=== PATIENT | female | born 1990 | race Caucasian/White ===

== ENCOUNTER 2017-09-26 10:21 | Emergency (ER) | payer OTHER ==
[2017-09-26 10:39] VITALS: RESP 18
[2017-09-26] MEDS ORDERED: KETOROLAC 60 MG/2 ML VIAL IM STA (11:25)
--- NOTE | 2017-09-26 11:29 | ED ---
Back Pain HPI - General Chief Complaint: Back Pain/Injury Stated Complaint: Back injury Time Seen by Provider: 09/26/17 11:04 Source: patient, RN notes reviewed Limitations: no limitations - History of Present Illness Initial Comments: Physical 27-year-old female with a benign past medical history states he is taking up her 3-year-old daughter yesterday developed some low back pain that sharp in nature 9/10 severity nonradiating. She states a little worse on the left than the right she states she took Tylenol without relief and 800 mg Motrin this morning without relief. Does not affect her urination or bowel movements. She has no prior history of low back problems. She states her last menstrual very was last month and does not believe she is . MD Complaint: back pain, back injury - Related Data Previous Rx's Medication Instructions Recorded Cyclobenzaprine [Flexeril] 10 mg PO TID #14 tab 09/26/17 Ketorolac [Toradol] 10 mg PO Q6HR #20 tab 09/26/17 predniSONE 20 mg PO BID #10 tab 09/26/17 Allergies Allergy/AdvReac Type Severity Reaction Status Date / Time No Known Allergies Allergy Verified 09/26/17 12:24 Review of Systems ROS Statement: Those systems with pertinent positive or pertinent negative responses have been documented in the HPI. ROS Other: All systems not noted in ROS Statement are negative. Past Medical History Past Medical History: No Reported History History of Any Multi-Drug Resistant Organisms: None Reported Past Surgical History: Section Past Psychological History: No Psychological Hx Reported Smoking Status: Never smoker Past Alcohol Use History: None Reported Past Drug Use History: Unable to Obtain General Exam - General Exam Comments Initial Comments: This is a well-developed well-nourished awake alert oriented 5 female Limitations: no limitations General appearance: alert, anxious Eye exam: Present: normal appearance, PERRL, EOMI. Absent: scleral icterus, conjunctival injection, periorbital swelling ENT exam: Present: normal exam, mucous membranes moist Neck exam: Present: normal inspection, full ROM. Absent: tenderness, meningismus, lymphadenopathy Respiratory exam: Present: normal lung sounds bilaterally. Absent: respiratory distress, wheezes, rales, rhonchi, stridor Cardiovascular Exam: Present: regular rate, normal rhythm, normal heart sounds. Absent: systolic murmur, diastolic murmur, rubs, gallop, clicks GI/Abdominal exam: Present: soft, normal bowel sounds. Absent: distended, tenderness, guarding, rebound, rigid Extremities exam: Present: normal inspection, full ROM, normal capillary refill. Absent: tenderness, pedal edema, joint swelling, calf tenderness Back exam: Present: normal inspection, tenderness, paraspinal tenderness. Absent: CVA tenderness (R), CVA tenderness (L), vertebral tenderness, rash noted (Tennis palpation over the L4 5 paraspinous muscles no definite SI joint or gluteal tenderness.) Neurological exam: Present: alert, oriented X3, CN II-XII intact Psychiatric exam: Present: normal affect, normal mood Skin exam: Present: warm, dry, intact, normal color. Absent: rash Course Vital Signs 09/26/17 10:36 Temperature 98.4 F Pulse Rate 61 Respiratory 18 Rate Blood Pressure 105/66 O2 Sat by Pulse 98 Oximetry Medical Decision Making - Medical Decision Making I did discuss findings with the patient she will be discharged she'll be tried on a course of muscle relaxants and anti-inflammatories as well as some pain medication. The presentation is consistent with a Q lumbar strain - Radiology Data Radiology results: image reviewed (I did review the imaging and reports pending she no evidence of acute) Disposition Clinical Impression: Strain of lumbar region Disposition: HOME SELF-CARE Condition: Good Instructions: Acute Low Back Pain (ED) Prescriptions: Cyclobenzaprine [Flexeril] 10 mg PO TID #14 tab Ketorolac [Toradol] 10 mg PO Q6HR #20 tab predniSONE 20 mg PO BID #10 tab Is patient prescribed a controlled substance at d/c from ED?: No Referrals: None,Stated [Primary Care Provider] - 1-2 days
[2017-09-26] MEDS ORDERED: methylPREDNISolone SOD SUCCI 125 MG/2 ML VIAL IM ONE (12:47)
--- NOTE | 2017-09-26 13:11 | XR ---
EXAMINATION TYPE: XR lumbosacral spine min 4V DATE OF EXAM: 09/26/2017 CLINICAL HISTORY: Lifting injury with pain. TECHNIQUE: Frontal, lateral, and oblique images of the lumbar spine are obtained. COMPARISON: None FINDINGS: There are 5 lumbar type vertebral bodies identified. The lumbar spine shows straightened alignment without evidence of acute fracture or dislocation. Vertebral body heights and disk space he ights are within normal limits. The oblique images appear within normal limits. The overlying soft tissue appears unremarkable. IMPRESSION: No acute fracture or dislocation is seen in the lumbar spine.
[2017-09-26 13:31] VITALS: BP 142/68; PULSE 52; TEMP 98.2
== END 2017-09-26 13:32 | disposition home or self-care (01) ==
LOC: EC 10:21
DX: S39.012A Strain of muscle, fascia and tendon of lower back, initial encounter (principal); X58.XXXA Exposure to other specified factors, initial encounter
CPT/HCPCS: 72110; 96372; 99283

== ENCOUNTER → 2018-07-04 | Outpatient (CLI) | payer OTHER | END | disposition home or self-care (01) | LOC: LABWHC1 11:43 | PROVIDERS: ATTEND Obstetrics & Gynecology | DX: N91.2 Amenorrhea, unspecified (principal) | CPT/HCPCS: 36415; 84702 ==

== ENCOUNTER 2023-08-08 13:59 | Emergency (ER) | payer OTHER ==
[2023-08-08 14:10] VITALS: TEMP 97.9
--- NOTE | 2023-08-08 14:43 | ED ---
Nausea/Vomiting/Diarrhea HPI - General Chief complaint: Nausea/Vomiting/Diarrhea Stated complaint: Vomiting-10 weeks preg Time Seen by Provider: 08/08/23 14:09 Source: patient, RN notes reviewed Mode of arrival: wheelchair Limitations: no limitations - History of Present Illness Initial comments: 33-year-old female presents emergency department chief complaint of nausea vomiting . Patient is G4, approximate 10 weeks she has had a prior ultrasound showing intrauterine . Patient denies any vaginal bleeding or vaginal discharge. Patient states that that she has been placed on Zofran which she ran out. Patient states that she tried some Unisom and B6 today states that she cannot hold it down. Patient denies any fevers or chills no localized abdominal pain. - Related Data Previous Rx's Medication Instructions Recorded Cyclobenzaprine [Flexeril] 10 mg PO TID #14 tab 09/26/17 Ketorolac [Toradol] 10 mg PO Q6HR #20 tab 09/26/17 predniSONE [Deltasone] 20 mg PO BID #10 tab 18 Ondansetron Odt [Zofran Odt] 4 mg PO Q8HR PRN #14 tab 08/08/23 Allergies Allergy/AdvReac Type Severity Reaction Status Date / Time No Known Allergies Allergy Verified 08/08/23 14:10 Review of Systems ROS Statement: Those systems with pertinent positive or pertinent negative responses have been documented in the HPI. ROS Other: All systems not noted in ROS Statement are negative. Past Medical History Past Medical History: No Reported History Additional Past Medical History / Comment(s): hyperemesis gravidarum with last History of Any Multi-Drug Resistant Organisms: None Reported Past Surgical History: Section Past Psychological History: No Psychological Hx Reported Past Alcohol Use History: None Reported Past Drug Use History: Unable to Obtain General Exam Limitations: no limitations General appearance: alert, in no apparent distress Head exam: Present: atraumatic, normocephalic, normal inspection Eye exam: Present: normal appearance, PERRL, EOMI. Absent: scleral icterus, conjunctival injection, periorbital swelling ENT exam: Present: normal exam, normal oropharynx, mucous membranes moist Neck exam: Present: normal inspection, full ROM. Absent: tenderness, meningismus, lymphadenopathy Respiratory exam: Present: normal lung sounds bilaterally. Absent: respiratory distress, wheezes, rales, rhonchi, stridor Cardiovascular Exam: Present: regular rate, normal rhythm, normal heart sounds. Absent: systolic murmur, diastolic murmur, rubs, gallop, clicks GI/Abdominal exam: Present: soft, normal bowel sounds. Absent: distended, tenderness, guarding, rebound, rigid Course Vital Signs 08/08/23 08/08/23 14:06 16:26 Temperature 97.9 F Pulse Rate 78 80 Respiratory 16 18 Rate Blood Pressure 137/87 130/86 O2 Sat by Pulse 98 99 Oximetry Medical Decision Making - Medical Decision Making Was pt. sent in by a medical professional or institution (, PA, [employer], urgent care, hospital, or detention...) When possible be specific @ -No Did you speak to anyone other than the patient for history (EMS, parent, family, police, friend...)? What history was obtained from this source @ -No Did you review nursing and triage notes (agree or disagree)? Why? @ -I reviewed and agree with nursing and triage notes Were old charts reviewed (outside hosp., previous admission, EMS record, old EK G, old radiological studies, urgent care reports/EKG's, detention records)? Report findings @ -No old charts were reviewed Differential Diagnosis (chest pain, altered mental status, abdominal pain women, abdominal pain men, vaginal bleeding, weakness, fever, dyspnea, syncope, headache, dizziness, GI bleed, back pain, seizure, CVA, palpatations, mental health, musculoskeletal)? @ -Differential Abdominal Pain Women: Appendicitis, Cholecystitis, diverticulosis, ischemic bowel, pancreatitis, he patitis, UTI, gastroenteritis, AAA, incarcerated hernia, bowel obstruction, constipation, inflammatory bowel, hepatitis, peptic ulcer disease, splenic infarction, perforated viscus, vulvitis, ovarian torsion, PID, kidney stone, placenta abruption, this is not meant to be an all-inclusive list EKG interpreted by me (3pts min.). @None X-rays interpreted by me (1pt min.). @ -None done CT interpreted by me (1pt min.). @ -None done U/S interpreted by me (1pt. min.). @ -None done What testing was considered but not performed or refused? (CT, X-rays, U/S, labs)? Why? @ -None What meds were considered but not given or refused? Why? @ -None Did you discuss the management of the patient with other professionals (professionals i.e. , PA, [employer], lab, RT, psych nurse, social worker psychiatric, sales specialist, teacher, disabilities services officer, sample case porter)? Give summary @ -No Was smoking cessation discussed for >3mins.? @ -No Was critical care preformed (if so, how long)? @ -No Were there social determinants of health that impacted care today? How? (Homelessness, low income, unemployed, alcoholism, drug addiction, transpor tation, low edu. Level, literacy, decrease access to med. care, correction, rehab)? @ -No Was there de-escalation of care discussed even if they declined (Discuss DNR or withdrawal of care, Hospice)? DNR status @ -No What co-morbidities impacted this encounter? (DM, HTN, Smoking, COPD, CAD, Cancer, CVA, ARF, Chemo, Hep., AIDS, mental health diagnosis, sleep apnea, morbid obesity)? @ -None Was patient admitted / discharged? Hospital course, mention meds given and route, prescriptions, significant lab abnormalities, going to OR and other pertinent info. @ -This patient feels greatly improved after IV fluids and antiemetics. Patient has no vaginal bleeding or abdominal pain. She had a confirmed intrauterine . Patient is discharged with follow-up with [facility] return for as discussed. Undiagnosed new problem with uncertain prognosis? @ -No Drug Therapy requiring intensive monitoring for toxicity (Heparin, Nitro, Insulin, Cardizem)? @ -No Were any procedures done? @ -No Diagnosis/symptom? @ -Nausea vomiting Acute, or Chronic, or Acute on Chronic? @ -Acute Uncomplicated (without systemic symptoms) or Complicated (systemic symptoms)? @ -Uncomplicated Side effects of treatment? @ -No Exacerbation, Progression, or Severe Exacerbation? @ -No Poses a threat to life or bodily function? How? (Chest pain, [place], [place], pneumonia, PE, COPD, DKA, ARF, appy, cholecystitis, CVA, Diverticulitis, Homicidal, Suicidal, threat to staff... and all critical care pts) @ -No - Lab Data Result diagrams: 08/08/23 14:54 08/08/23 14:54 Lab Results 08/08/23 08/08/23 Range/Units 14:54 14:54 WBC 8.3 (3.8-10.6) k/uL RBC 4.82 (3.80-5.40) m/uL Hgb 13.9 (11.4-16.0) gm/dL Hct 42.6 (34.0-46.0) % MCV 88.4 (80.0-100.0) fL MCH 28.8 (25.0-35.0) pg MCHC 32.6 (31.0-37.0) g/dL RDW 12.7 (11.5-15.5) % Plt Count 293 (150-450) k/uL MPV 7.2 Neutrophils % 74 % Lymphocytes % 20 % Monocytes % 4 % Eosinophils % 1 % Basophils % 0 % Neutrophils # 6.1 (1.3-7.7) k/uL Lymphocytes # 1.6 (1.0-4.8) k/uL Monocytes # 0.3 (0-1.0) k/uL Eosinophils # 0.1 (0-0.7) k/uL Basophils # 0.0 (0-0.2) k/uL Sodium 134 L (137-145) mmol/L Potassium 4.2 (3.5-5.1) mmol/L Chloride 104 (98-107) mmol/L Carbon Dioxide 20 L (22-30) mmol/L Anion Gap 10 mmol/L BUN 6 L (7-17) mg/dL Creatinine 0.51 L (0.52-1.04) mg/dL Est GFR (CKD-EPI)AfAm >90 (>60 ml/min/1.73 sqM) Est GFR (CKD-EPI)NonAf >90 (>60 ml/min/1.73 sqM) Glucose 126 H (74-99) mg/dL Calcium 9.9 (8.4-10.2) mg/dL Magnesium 1.6 (1.6-2.3) mg/dL Total Bilirubin 0.9 (0.2-1.3) mg/dL AST 41 H (14-36) U/L ALT 44 H (4-34) U/L Alkaline Phosphatase 67 (38-126) U/L Total Protein 7.1 (6.3-8.2) g/dL Albumin 4.3 (3.5-5.0) g/dL Disposition Clinical Impression: Nausea/vomiting in Disposition: HOME SELF-CARE Condition: Stable Instructions (If sedation given, give patient instructions): Nausea and Vomiting in (ED) Additional Instructions: Please return to the Emergency Department if symptoms worsen or any other concerns. Prescriptions: Ondansetron Odt [Zofran Odt] 4 mg PO Q8HR PRN #14 tab PRN Reason: Nausea Is patient prescribed a controlled substance at d/c from ED?: No Referrals: None,Stated [Primary Care Provider] - 1-2 days Time of Disposition: 15:50
[2023-08-08] MEDS: SODIUM CHLORIDE 0.9% 2,000 ML IV STA (14:49)
[2023-08-08] MEDS: diphenhydrAMINE 50 MG/ML 1 ML VIAL IVP STA (14:50)
[2023-08-08] MEDS: METOCLOPRAMIDE 5 MG/ML 2 ML VIAL IVP STA (14:51)
[2023-08-08 15:21] LABS: Basophils % (A) 0 %; Eosinophils # (A) 0.1 k/uL (0-0.7); Eosinophils % (A) 1 %; HCT 42.6 % (34.0-46.0); HGB 13.9 gm/dL (11.4-16.0); Lymphocytes # (A) 1.6 k/uL (1.0-4.8); Lymphocytes % (A) 20 %; MCH 28.8 pg (25.0-35.0); MCHC 32.6 g/dL (31.0-37.0); MCV 88.4 fL (80.0-100.0); Mean Platelet Volume 7.2; Monocytes # (A) 0.3 k/uL (0-1.0); Monocytes % (A) 4 %; Neutrophils # (A) 6.1 k/uL (1.3-7.7); Neutrophils % (A) 74 %; Platelet Count 293 k/uL (150-450); RBC 4.82 m/uL (3.80-5.40); RDW 12.7 % (11.5-15.5); WBC 8.3 k/uL (3.8-10.6)
[2023-08-08 15:22] LABS: African American GFR (CKD) >90 (>60 ml/min/1.73 sqM); Albumin 4.3 g/dL (3.5-5.0); Anion Gap 10 mmol/L; Blood Urea Nitrogen 6 mg/dL (7-17); Calcium 9.9 mg/dL (8.4-10.2); Carbon Dioxide 20 mmol/L (22-30); Chloride 104 mmol/L (98-107); Glucose 126 mg/dL (74-99); Magnesium 1.6 mg/dL (1.6-2.3); Non-African American GFR(CKD) >90 (>60 ml/min/1.73 sqM); Sodium 134 mmol/L (137-145); Total Bilirubin 0.9 mg/dL (0.2-1.3); Total Protein 7.1 g/dL (6.3-8.2)
[2023-08-08 15:23] LABS: ALT 44 U/L (4-34); AST 41 U/L (14-36); Alkaline Phosphatase 67 U/L (38-126); Potassium 4.2 mmol/L (3.5-5.1)
[2023-08-08 16:27] VITALS: BP 130/86; PULSE 80; RESP 18
== END 2023-08-08 16:35 | disposition home or self-care (01) ==
LOC: EC 13:59
DX: O21.9 Vomiting of pregnancy, unspecified (principal); Z3A.10 10 weeks gestation of pregnancy
CPT/HCPCS: 36415; 80053; 83735; 85025; 99284; 96374; 96375; 96361 ×2; J1200; J2765

== ENCOUNTER → 2023-09-13 | Outpatient (CLI) | payer OTHER ==
[2023-09-14 02:43] LABS: Basophils # (A) 0.05 X 10*3/uL (0.00-0.10); Basophils % (A) 0.7 %; Eosinophils # (A) 0.11 X 10*3/uL (0.04-0.35); Eosinophils % (A) 1.5 %; HCT 41.2 % (37.2-46.3); HGB 13.2 g/dL (12.0-15.0); Lymphocytes # (A) 2.15 X 10*3/uL (0.90-5.00); MCH 29.7 pg (27.0-32.0); MCV 92.8 FL (80.0-97.0); Mean Platelet Volume 9.5 FL (9.5-12.2); Monocytes # (A) 0.44 X 10*3/uL (0.20-1.00); Monocytes % (A) 5.9 %; NRBC Per 100 WBC 0 X 10*3/uL (0.00-0.01); Neutrophils # (A) 4.64 X 10*3/uL (1.80-7.70); Neutrophils % (A) 62.5 %; Platelet Count 328 X 10*3/uL (140-440); RBC 4.44 X 10*6/uL (4.10-5.20); RDW 13.6 % (11.5-14.5); WBC 7.42 X 10*3/uL (4.50-10.00)
== END | disposition home or self-care (01) ==
LOC: LABPAT 14:49
PROVIDERS: ATTEND Obstetrics & Gynecology
DX: Z01.812 Encounter for preprocedural laboratory examination (principal); O02.1 Missed abortion
CPT/HCPCS: 85025; 86850; 86900; 86901

== ENCOUNTER 2023-09-14 08:35 | Day surgery (SDC) | payer OTHER ==
[~2023-09-14 08:35] MED LIST: Pre Op ABX Message 1 EACH MISC MISCELLANE ONE
[2023-09-14 09:16] VITALS: BMI 35.2
[2023-09-14] MEDS: IV FLUID CONTINUATION 1,000 ML IV ONE (09:16)
[2023-09-14] MEDS: DEXAMETHASONE SOD PHOSPHATE 4 MG/ML 1 ML VIAL IVP STA (09:20)
[2023-09-14] MEDS: LACTATED RINGERS 1,000 ML BAG IV STA (09:20)
[2023-09-14] MEDS: ONDANSETRON 4 MG/2 ML VIAL IVP STA (09:21)
[2023-09-14] MEDS ORDERED: fentaNYL (PF) 50 MCG/ML 2 ML AMP ONE (10:38)
[2023-09-14] MEDS ORDERED: PROPOFOL 10 MG/ML 20 ML VIAL IV ONE (10:38)
[2023-09-14] MEDS ORDERED: KETOROLAC 15 MG/ML 1 ML VIAL ONE (10:38)
[2023-09-14] MEDS ORDERED: LIDOCAINE 1% INJ 10MG/ML (20 ML MDV) ONE (10:38)
[2023-09-14] MEDS ORDERED: MIDAZOLAM 2 MG/2 ML VIAL ONE (10:38)
[2023-09-14] MEDS: LACTATED RINGERS 1,000 ML IV ONE ×3 (11:09)
[2023-09-14] MEDS ORDERED: IBUPROFEN 600 MG TAB PO PRN (11:13)
[2023-09-14] MEDS ORDERED: KETOROLAC 15 MG/ML 1 ML VIAL IVP PRN (11:13)
[2023-09-14] MEDS ORDERED: ONDANSETRON 4 MG/2 ML VIAL IVP PRN (11:13)
[2023-09-14] MEDS ORDERED: SIMETHICONE 80 MG CHEWABLE PO PRN (11:13)
[2023-09-14] MEDS ORDERED: Acetaminophen-Codeine 300-30mg TAB PO PRN ×2 (11:13)
[2023-09-14] MEDS ORDERED: METOCLOPRAMIDE 5 MG/ML 2 ML VIAL IVP PRN (11:13)
[2023-09-14] MEDS ORDERED: diphenhydrAMINE 50 MG/ML 1 ML VIAL IVP PRN (11:13)
[2023-09-14] MEDS ORDERED: LACTATED RINGERS 1,000 ML IV SCH (11:15)
--- NOTE | 2023-09-14 11:22 | P.OP ---
Date of Procedure: 09/14/23 Preoperative Diagnosis: #1. 11-week missed Postoperative Diagnosis: Same Procedure(s) Performed: #1. Dilation and aspiration curettage Anesthesia: other (General by LMA) Surgeon: Lopez Vazquez Estimated Blood Loss (ml): 350 IV fluids (ml): 400 Urine output (ml): 10 Pathology: other (Intrauterine products of conception) Condition: stable Disposition: PACU Operative Findings: Preoperative pelvic examination demonstrated a 10 to 12-week slightly retroverted mobile normal shaped uterus with normal necks bilaterally. Intraoperatively, the uterus sounded to 14 cm. Tissue was clearly seen passing through the suction tubing for the first 3 passes using the aspiration curette. The fourth pass yielded no further tissue. The typical gritty texture was encountered with the sharp curette. Description of Procedure: The patient was prepped and draped in usual fashion after general anesthesia was administered by the anesthesiologist. A weighted speculum was placed in the anterior lip of the cervix grasped with a single-tooth tenaculum. The bladder was drained of approximately 10 cc of clear kim urine. The uterus was sounded to 14 cm as noted above. Serial dilation was carried out to admit a #9 curved aspiration curette which was placed to the fundus of the uterus and suction applied. After building adequate suction, thorough and circumferential suction curettage was carried out from the fundus to the cervix with tissue clearly seen passing through the tubing. Tissue was seen passing through the tubing on the next 2 passes as well. 1 final pass was then made at which time no further tissue was noted. The suction curette was set aside for a sharp curette which was utilized to thoroughly and circumferentially curette the endometrial cavity where the typical gritty texture was encountered throughout the entire cavity and no further tissue was produced. 1 last pass was made with the aspiration curette demonstrating no further tissue. The uterus was appreciably smaller following curettage. All instrumentation was removed. Estimated blood loss for the case was approximately 350 mL. There were no complications. All sponge, instrument, and needle counts were correct. The patient tolerated the procedure well and proceeded to the recovery room in stable condition.
[2023-09-14 11:28] VITALS: TEMP 97.4
[2023-09-14 12:20] VITALS: PULSE 72; RESP 17
[2023-09-14 12:34] VITALS: BP 121/81
[2023-09-15] MEDS ORDERED: ACETAMINOPHEN TAB 325 MG TAB PO PRN (11:15)
== END 2023-09-14 12:58 | disposition home or self-care (01) ==
LOC: OR 08:35
PROVIDERS: ATTEND Obstetrics & Gynecology
DX: O02.1 Missed abortion (principal)
CPT/HCPCS: 59820; J2250; J1100; J2405; J2001; J3010; J1885; J2704; 88305

== ENCOUNTER → 2024-05-27 | Outpatient (CLI) | payer OTHER ==
[2024-05-27 15:06] LABS: Basophils # (A) 0.05 X 10*3/uL (0.00-0.10); Basophils % (A) 0.9 %; Eosinophils # (A) 0.13 X 10*3/uL (0.04-0.35); Eosinophils % (A) 2.3 %; HCT 36.9 % (37.2-46.3); HGB 12.2 g/dL (12.0-15.0); Lymphocytes # (A) 1.73 X 10*3/uL (0.90-5.00); Lymphocytes % (A) 30.2 %; MCHC 33.1 g/dL (32.0-37.0); MCV 87.9 FL (80.0-97.0); Mean Platelet Volume 8.9 FL (9.5-12.2); Monocytes # (A) 0.33 X 10*3/uL (0.20-1.00); Monocytes % (A) 5.8 %; NRBC Per 100 WBC 0 X 10*3/uL (0.00-0.01); Neutrophils # (A) 3.45 X 10*3/uL (1.80-7.70); Neutrophils % (A) 60.3 %; Platelet Count 274 X 10*3/uL (140-440); RDW 13.8 % (11.5-14.5); WBC 5.72 X 10*3/uL (4.50-10.00)
== END | disposition home or self-care (01) ==
LOC: LABPAT 11:29
PROVIDERS: ATTEND Obstetrics & Gynecology
DX: Z01.812 Encounter for preprocedural laboratory examination (principal); O02.1 Missed abortion
CPT/HCPCS: 85025; 86850; 86900; 86901

== ENCOUNTER 2024-05-28 10:46 | Day surgery (SDC) | payer OTHER ==
[2024-05-27 12:11] VITALS: BMI 36.7
[2024-05-28] MEDS: IV FLUID CONTINUATION 1,000 ML IV ONE ×2 (11:13→13:49)
[2024-05-28] MEDS: ONDANSETRON 4 MG/2 ML VIAL IVP STA (11:34)
[2024-05-28] MEDS: DEXAMETHASONE SOD PHOSPHATE 4 MG/ML 1 ML VIAL IVP STA (11:35)
[2024-05-28] MEDS: LACTATED RINGERS 1,000 ML BAG IV STA (11:35)
[2024-05-28] MEDS ORDERED: PROPOFOL 10 MG/ML 20 ML VIAL IV ONE (12:10)
[2024-05-28] MEDS ORDERED: fentaNYL (PF) 50 MCG/ML 2 ML AMP ONE (12:10)
[2024-05-28] MEDS ORDERED: MIDAZOLAM 2 MG/2 ML VIAL ONE (12:10)
[2024-05-28] MEDS ORDERED: LIDOCAINE 1% INJ 10MG/ML (20 ML MDV) ONE (12:10)
[2024-05-28] MEDS: LACTATED RINGERS 1,000 ML IV ONE (12:51)
[2024-05-28] MEDS ORDERED: diphenhydrAMINE 50 MG/ML 1 ML VIAL IVP PRN (12:58)
[2024-05-28] MEDS ORDERED: ACETAMINOPHEN TAB 325 MG TAB PO PRN (12:58)
[2024-05-28] MEDS ORDERED: SIMETHICONE 80 MG CHEWABLE PO PRN (12:58)
[2024-05-28] MEDS ORDERED: METOCLOPRAMIDE 5 MG/ML 2 ML VIAL IVP PRN (12:58)
[2024-05-28] MEDS ORDERED: diphenhydrAMINE 25 MG CAP PO PRN (12:58)
[2024-05-28] MEDS ORDERED: IBUPROFEN 600 MG TAB PO PRN (12:58)
[2024-05-28] MEDS ORDERED: ONDANSETRON 4 MG/2 ML VIAL IVP PRN (12:58)
[2024-05-28] MEDS ORDERED: LACTATED RINGERS 1,000 ML IV SCH (13:00)
--- NOTE | 2024-05-28 13:05 | P.OP ---
Date of Procedure: 05/28/24 Preoperative Diagnosis: #1. 13-week missed Postoperative Diagnosis: Same Procedure(s) Performed: #1. Dilation and aspiration curettage Anesthesia: other (General By LMA) Surgeon: Lopez Vazquez Estimated Blood Loss (ml): 600 IV fluids (ml): 800 Urine output (ml): 30 Pathology: other (Intrauterine contents) Condition: stable Disposition: PACU Operative Findings: Preoperative pelvic examination demonstrated a 12 to 14-week sized midplane mobile normal uterus with normal adnexa bilaterally. Intraoperatively, the uterus sounded to 14 cm. A significant amount of tissue was noted coming through the tubing over multiple passes, perhaps as many as 12-15 total passes with the aspiration curette. 2 separate trials with the sharp curette produced a small amount of tissue though, at the second application of the sharp curette, the typical gritty texture was encountered throughout. After 2 final passes following the last attempt with sharp curettage, the aspiration curette failed to demonstrate any further tissue. The uterus was appreciably smaller both with the instruments and by palpation. Description of Procedure: The patient was prepped and draped in usual fashion after general anesthesia was administered by the anesthesiologist. A weighted speculum was placed in the anterior lip of the cervix grasped with a single-tooth tenaculum. The bladder was catheterized for approximately 30 mL of clear kim urine. The uterus was sounded to 14 cm as noted above. Serial dilation was carried out to admit a #9 curved aspiration curette which was placed to the fundus of the uterus and suction applied. After building adequate suction, thorough and circumferential aspiration curettage was carried out from the fundus to the cervix. Approximately 5-6 passes were made at which time tissue was seen passing through the tubing. On the last pass, no tissue was appreciated and it was traded for a sharp curette which was utilized to thoroughly and circumferentially perform sharp curettage on the uterine cavity from the fundus to the cervix at which time the gritty texture was noted primarily along the posterior aspect but some tissue was still produced using the sharp curette. As a result it was set aside and further passes made with the aspiration curette, or perhaps as many as 5 or 6 more at which time tissue again continued to pass in small amounts. When it was felt that no further tissue was passing, the sharp curette was again employed and the typical gritty texture was encountered throughout. No further tissue was produced. 2 further passes were made with the aspiration curette to ensure no further tissue and none was seen passing through the tubing. At this time, the uterus was appreciably smaller as regards the length of the aspiration curette and to palpation. There was minimal ongoing bleeding at the time. All instrumentation was removed and some bleeding at the site of the tenaculum was made hemostatic with pressure. There was no ongoing bleeding from the cervix or any of the other sites. Estimated blood loss for the case was approximately 600 mL. There were no complications. All sponge, instrument, and needle counts were correct. The patient tolerated the procedure well and proceeded to the recovery room in stable condition.
[2024-05-28 13:11] VITALS: TEMP 96.8
[2024-05-28] MEDS: KETOROLAC 15 MG/ML 1 ML VIAL IVP PRN (14:18)
[2024-05-28 14:29] VITALS: RESP 16
[2024-05-28 14:56] VITALS: BP 116/68; PULSE 87
== END 2024-05-28 15:01 | disposition home or self-care (01) ==
LOC: OR 10:46
PROVIDERS: ATTEND Obstetrics & Gynecology
DX: O02.1 Missed abortion (principal)
CPT/HCPCS: 59820; J1100; J2405; J1885; 88305